=== PATIENT | male | born 1935 | race Caucasian/White ===

== ENCOUNTER 2021-03-02 12:45 | Emergency (ER) | payer MEDICARE ==
[~2021-03-02] VITALS: Ht 165.1 cm; Wt 79.4 kg
[2021-03-02] MEDS ORDERED: ACETAMINOPHEN500 MG PO (13:32)
== END 2021-03-02 14:34 | disposition home or self-care (01) ==
LOC: FSED 12:52
DX: S00.83XA Contusion of other part of head, initial encounter (principal); W18.39XA Other fall on same level, initial encounter; Y92.008 Other place in unspecified non-institutional (private) residence as the place of occurrence of the external cause; I12.0 Hypertensive chronic kidney disease with stage 5 chronic kidney disease or end stage renal disease; E11.22 Type 2 diabetes mellitus with diabetic chronic kidney disease; N18.6 End stage renal disease; Z99.2 Dependence on renal dialysis
CPT/HCPCS: 70450; 99283

== ENCOUNTER 2021-05-18 14:21 | Emergency (ER) | payer MEDICARE ==
[~2021-05-18] VITALS: Ht 165.1 cm; Wt 81.6 kg
[~2021-05-18 14:21] MED LIST: ACETAMINOPHEN500 MG PO
[2021-05-18] MEDS ORDERED: ASPIRIN EC81 MG PO (14:49)
[2021-05-18] MEDS ORDERED: WARFARIN SODIUM2 MG PO (14:49)
[2021-05-18] MEDS ORDERED: BUMETANIDE1 MG PO (14:49)
[2021-05-18] MEDS ORDERED: DIALYVITE 5000 T5 MG (14:49)
[2021-05-18] MEDS ORDERED: MOVE FREE JOIN1 EACH (14:49)
[2021-05-18] MEDS ORDERED: ISOSORBIDE MONO30 MG PO (14:49)
[2021-05-18] MEDS ORDERED: METOPROLOL SUCC25 MG PO (14:49)
[2021-05-18] MEDS ORDERED: ATORVASTATIN CA20 MG PO (14:49)
== END 2021-05-18 16:50 | disposition short-term general hospital (02) ==
LOC: FSED 15:17
DX: T25.222A Burn of second degree of left foot, initial encounter (principal); I12.0 Hypertensive chronic kidney disease with stage 5 chronic kidney disease or end stage renal disease; N18.6 End stage renal disease; Z99.2 Dependence on renal dialysis; E78.5 Hyperlipidemia, unspecified; Z95.810 Presence of automatic (implantable) cardiac defibrillator
CPT/HCPCS: 36415; 82948; 99284